=== PATIENT | male | born 1985 | race American Indian/Alaskan Native ===

== ENCOUNTER 2017-01-05 11:56 | Emergency (ER) | payer SELFPAY ==
[2017-01-05 13:11] VITALS: BP 144/91
[2017-01-05] MEDS ORDERED: DUONEB 0.5 MG-3 MG/3 ML SOLN IH ONE (13:28)
--- NOTE | 2017-01-05 13:36 | Emergency Department Report ---
ED Asthma HPI - General Chief Complaint: Adult Asthma Stated Complaint: CHEST CONGESTION/BRONCHITIS Time Seen by Provider: 01/05/17 13:14 Source: patient Mode of arrival: Ambulatory Limitations: No Limitations - History of Present Illness Initial Comments: patient returns to ER today with same complaints of wheezing, SOB and productive cough. States that since he moved from [place] to here, he has always been like this. Notes that this month, he has been coughing up green plegm as well. MD Complaint: shortness of breath, wheezing -: Gradual, month(s) Severity: severe, similar to prior Context: recent URI, ran out of meds Associated Symptoms: productive cough, fever. denies: chest pain, hemoptysis, leg edema, syncope Treatments Prior to Arrival: inhaled bronchodilator - Related Data Current Asthma Therapy: inhaled bronchodilator Previous Rx's Medication Instructions Recorded Last Taken Type ALBUTEROL NEB's [Proventil 0.083% 2.5 mg IH QID PRN #25 neb 11/15/16 Unknown Rx NEBS] ALBUTEROL NEB's [Proventil 0.083% 2.5 mg IH QID PRN #240 nebu 01/05/17 Unknown Rx NEBS] Amoxicillin 1,000 mg PO BID #40 capsule 01/05/17 Unknown Rx Budesonide [Pulmicort] 0.5 mg IH Q12HR #60 nebu 01/05/17 Unknown Rx Montelukast [Singulair] 10 mg PO QPM #30 tablet 01/05/17 Unknown Rx predniSONE [Deltasone] 60 mg PO QDAY 5 Days 01/05/17 Unknown Rx Allergies Allergy/AdvReac Type Severity Reaction Status Date / Time No Known Allergies Allergy Verified 01/05/17 13:05 ED Review of Systems ROS: Stated complaint: CHEST CONGESTION/BRONCHITIS Other details as noted in HPI Constitutional: fever. denies: chills Eyes: denies: eye pain, eye discharge, vision change ENT: congestion. denies: ear pain, throat pain Respiratory: cough, shortness of breath, wheezing. denies: SOB with exertion Cardiovascular: denies: chest pain, palpitations Endocrine: no symptoms reported Gastrointestinal: denies: abdominal pain, nausea, diarrhea Genitourinary: denies: urgency, dysuria Musculoskeletal: denies: back pain, joint swelling, arthralgia Skin: denies: rash, lesions Neurological: denies: headache, weakness, paresthesias Psychiatric: denies: anxiety, depression Hematological/Lymphatic: denies: easy bleeding, easy bruising ED Past Medical Hx - Past Medical History Additional medical history: bronchitis - Surgical History Past Surgical History?: No - Social History Smoking Status: Current Some Day Smoker Substance Use Type: Alcohol - Medications Home Medications: Home Medications Medication Instructions Recorded Confirmed Last Taken Type ALBUTEROL NEB's [Proventil 0.083% 2.5 mg IH QID PRN #25 neb 11/15/16 Unknown Rx NEBS] ALBUTEROL NEB's [Proventil 0.083% 2.5 mg IH QID PRN #240 nebu 01/05/17 Unknown Rx NEBS] Amoxicillin 1,000 mg PO BID #40 capsule 01/05/17 Unknown Rx Budesonide [Pulmicort] 0.5 mg IH Q12HR #60 nebu 01/05/17 Unknown Rx Montelukast [Singulair] 10 mg PO QPM #30 tablet 01/05/17 Unknown Rx predniSONE [Deltasone] 60 mg PO QDAY 5 Days 01/05/17 Unknown Rx ED Physical Exam - General Limitations: No Limitations General appearance: alert, in no apparent distress - Head Head exam: Present: atraumatic, normocephalic - Eye Eye exam: Present: normal appearance - ENT ENT exam: Present: mucous membranes moist, TM's normal bilaterally, normal external ear exam, other (red and swollen nasal mucosa) - Expanded ENT Exam Expanded Mouth exam: Present: normal external inspection Throat exam: Positive: normal inspection - Neck Neck exam: Present: normal inspection - Respiratory Respiratory exam: Present: normal lung sounds bilaterally, wheezes, rhonchi. Absent: respiratory distress, chest wall tenderness - Cardiovascular Cardiovascular Exam: Present: regular rate, normal rhythm. Absent: systolic murmur, diastolic murmur, rubs, gallop - GI/Abdominal GI/Abdominal exam: Present: soft, normal bowel sounds - Rectal Rectal exam: Present: deferred - Extremities Exam Extremities exam: Present: normal inspection - Back Exam Back exam: Present: normal inspection - Neurological Exam Neurological exam: Present: alert, oriented X3 - Psychiatric Psychiatric exam: Present: normal affect, normal mood - Skin Skin exam: Present: warm, dry, intact, normal color. Absent: rash ED Course Vital Signs 01/05/17 13:07 Temperature 98.3 F Pulse Rate 73 Respiratory 22 Rate Blood Pressure 144/91 O2 Sat by Pulse 98 Oximetry ED Medical Decision Making - Medical Decision Making patient states that he was worse last time he was here and that they gave him steroid shots and breathing treatments with CXR. Was told the Xray was normal and he does not want to get another X-ray today. I believe patient to be having allergic asthma related to environmental change from [place]. Patient given #3 duoneb treatments in the ER today with improvements of breath sounds and symptoms. I will start patient on preventative medications as well as refer to pulmonology doctor. Critical care attestation.: If time is entered above; I have spent that time in minutes in the direct care of this critically ill patient, excluding procedure time. ED Disposition Clinical Impression: Wheezing, Asthmatic bronchitis Disposition: DISCHARGED TO HOME OR SELFCARE Is pt being admited?: No Does the pt Need Aspirin: No Condition: Good Instructions: Acute Bronchitis (ED), Asthma (ED), Bronchospasm (ED) Prescriptions: ALBUTEROL NEB's [Proventil 0.083% NEBS] 2.5 mg IH QID PRN #240 nebu PRN Reason: Shortness Of Breath Amoxicillin 1,000 mg PO BID #40 capsule Budesonide [Pulmicort] 0.5 mg IH Q12HR #60 nebu Montelukast [Singulair] 10 mg PO QPM #30 tablet predniSONE [Deltasone] 60 mg PO QDAY 5 Days Referrals: PRIMARY CARE, [Primary Care Provider] - 3-5 Days PEARL AREVALO MD [Staff Physician] - 3-5 Days Time of Disposition: 14:53
== END 2017-01-05 15:17 | disposition home or self-care (01) ==
LOC: ED 11:56
DX: J45.909 Unspecified asthma, uncomplicated (principal); F17.200 Nicotine dependence, unspecified, uncomplicated

== ENCOUNTER 2017-08-09 00:59 | Emergency (ER) | payer SELFPAY ==
[2017-08-09 01:16] VITALS: BP 174/85
[2017-08-09] MEDS ORDERED: PROVENTIL IH ONE (01:17)
[2017-08-09 02:07] LABS: Anion Gap 17 mmol/L; BUN/Creatinine Ratio 17; Blood Urea Nitrogen 19 mg/dL (9-20); Calcium 8.9 mg/dL (8.4-10.2); Carbon Dioxide 24 mmol/L (22-30); Chloride 102.2 mmol/L (98-107); Glucose 91 mg/dL (75-100); Sodium 139 mmol/L (137-145)
--- NOTE | 2017-08-09 03:02 | XRay Report ---
FINAL REPORT EXAM: XR CHEST ROUTINE 2V HISTORY: Shortness of breath TECHNIQUE: PA and lateral views of the chest were obtained. FINDINGS: The heart size and mediastinum appear normal. The lungs are clear. Pleural fluid is not seen. The bones and soft tissues are well maintained. IMPRESSION: Negative chest.
== END 2017-08-09 06:20 | disposition left against medical advice (07) ==
LOC: ED 00:59
DX: Z53.21 Procedure and treatment not carried out due to patient leaving prior to being seen by health care provider (principal)
CPT/HCPCS: 36415; 71020; 80048; 93005; 94640

== ENCOUNTER 2021-12-06 05:36 | Emergency (ER) | payer SELFPAY ==
[2021-12-06] MEDS ORDERED: methylPREDNISolone Sod Succinate 125 MG/2 ML INJ IV ONE (05:41)
[2021-12-06] MEDS ORDERED: diphenhydrAMINE 50 MG/ML VIAL IV ONE (05:41)
[2021-12-06] MEDS ORDERED: MAGNESIUM SULFATE 2 GM/50 ML BAG IV ONE (05:43)
--- NOTE | 2021-12-06 05:48 | Event Note ---
ED Screening Note ED Screening Note: [id number] male with no history of asthma ran out of his medication try to use water and with albuterol to stretch it out to make it last longer but was unsuccessful in him emergency department dizziness with wheezing tightness in the chest and shortness of breath. This initial assessment/diagnostic orders/clinical plan/treatment(s) is/are subject to change based on patients health status, clinical progression and re- assessment by fellow clinical providers in the ED. Further treatment and workup at subsequent clinical providers discretion. Patient/guardian urged not to elope from the ED as their condition may be serious if not clinically assessed and managed. Initial orders include: Albuterol/asthma protocol
[2021-12-06] MEDS: ALBUTEROL 2.5 MG/3 ML NEBU IH ONE ×2 (05:58→08:02)
[2021-12-06] MEDS: IPRATROPIUM 0.02% NEBU 2.5 ML IH ONE ×2 (05:58→08:08)
[2021-12-06] MEDS ORDERED: LEVALBUTEROL 0.63 MG/3 ML NEBU IH ONE (07:20)
--- NOTE | 2021-12-06 07:23 | Emergency Department Report ---
ED Asthma HPI - General Chief Complaint: Dyspnea/Respdistress Stated Complaint: ASTHMA Time Seen by Provider: 12/06/21 06:28 Source: patient Mode of arrival: Ambulatory Limitations: No Limitations - History of Present Illness Initial Comments: 36-year-old male with a past medical history of asthma and chronic bronchitis presents to the ER today with complaints of asthma flareup. Patient states that his symptoms started 4 days ago. Patient reports cough, wheezing, shortness of breath, chest tightness, hoarse voice and rhinorrhea. Patient states that he does not have have any of his albuterol MDIs nor does he have any more albuterol nebulized solution for his albuterol nebulizer. He denies any fever or chills. Denies any ill contacts. He denies tobacco use, illicit drug use or alcohol abuse. He states that the last time he was admitted was 3 years ago for his asthma. He has never been intubated before in the past. He denies any history of heart disease. 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 He states that the weather in [place] was very cold and he was not prepared and thinks that this may have triggered his asthma symptoms in addition to the pollen here in [place]. He denies any lower extremity swelling or calf pain. Patient has not been vaccinated against COVID- 19. He has not gotten a COVID-19 test since he has been sick. MD Complaint: "asthma attack", shortness of breath, wheezing -: days(s) (4) - Related Data Previous Rx's Medication Instructions Recorded Last Taken Type ALBUTEROL NEB's [Proventil 0.083% 2.5 mg IH QID PRN #25 neb 11/15/16 Unknown Rx NEBS] Amoxicillin 1,000 mg PO BID #40 capsule 01/05/17 Unknown Rx Budesonide [Pulmicort] 0.5 mg IH Q12HR #60 nebu 01/05/17 Unknown Rx ALBUTEROL NEB's [Proventil 0.083% 2.5 mg IH QID PRN #240 nebu 12/06/21 Unknown Rx NEBS] Azithromycin [Zithromax Z-ANDERS] 0 mg PO DAILY #1 pack 12/06/21 Unknown Rx Benzonatate [Tessalon Perles] 100 mg PO Q8HR #30 cap 12/06/21 Unknown Rx Montelukast [Singulair] 10 mg PO QPM #30 tablet 12/06/21 Unknown Rx predniSONE [Deltasone] 60 mg PO QDAY 4 Days tab 12/06/21 Unknown Rx Allergies Allergy/AdvReac Type Severity Reaction Status Date / Time No Known Allergies Allergy Verified 01/05/17 13:05 ED Review of Systems ROS: Stated complaint: ASTHMA Other details as noted in HPI Comment: All other systems reviewed and negative Constitutional: denies: chills, fever ENT: other (Rhinorrhea). denies: ear pain, throat pain, dental pain, hearing loss Respiratory: cough, shortness of breath, wheezing Cardiovascular: chest pain (Chest tightness) Gastrointestinal: denies: abdominal pain, nausea, diarrhea Genitourinary: denies: urgency, dysuria, frequency, hematuria, discharge, testicular pain, testicular mass Musculoskeletal: denies: back pain, joint swelling, arthralgia, myalgia Skin: denies: rash, lesions, change in color, change in hair/nails, pruritus Neurological: denies: headache, weakness, numbness, paresthesias, confusion, abnormal gait, vertigo Psychiatric: denies: anxiety, depression, auditory hallucinations, visual hallucinations, homicidal thoughts, suicidal thoughts Hematological/Lymphatic: denies: easy bleeding, easy bruising, swollen glands ED Past Medical Hx - Past Medical History Hx Asthma: Yes Additional medical history: bronchitis - Social History Smoking Status: Current Every Day Smoker Substance Use Type: None - Medications Home Medications: Home Medications Medication Instructions Recorded Confirmed Last Taken Type ALBUTEROL NEB's [Proventil 0.083% 2.5 mg IH QID PRN #25 neb 11/15/16 Unknown Rx NEBS] Amoxicillin 1,000 mg PO BID #40 capsule 01/05/17 Unknown Rx Budesonide [Pulmicort] 0.5 mg IH Q12HR #60 nebu 01/05/17 Unknown Rx ALBUTEROL NEB's [Proventil 0.083% 2.5 mg IH QID PRN #240 nebu 12/06/21 Unknown Rx NEBS] Azithromycin [Zithromax Z-ANDERS] 0 mg PO DAILY #1 pack 12/06/21 Unknown Rx Benzonatate [Tessalon Perles] 100 mg PO Q8HR #30 cap 12/06/21 Unknown Rx Montelukast [Singulair] 10 mg PO QPM #30 tablet 12/06/21 Unknown Rx predniSONE [Deltasone] 60 mg PO QDAY 4 Days tab 12/06/21 Unknown Rx ED Physical Exam - General Limitations: No Limitations General appearance: alert, in no apparent distress, other (Patient had already received a nebulizer treatment by the time I saw and evaluated him. At the time he was not in any respiratory distress.) - Head Head exam: Present: atraumatic, normocephalic, normal inspection - Eye Eye exam: Present: normal appearance, PERRL, EOMI Pupils: Present: normal accommodation - Neck Neck exam: Present: normal inspection, full ROM. Absent: meningismus - Respiratory Respiratory exam: Present: normal lung sounds bilaterally, wheezes (Diffuse expiratory expiratory wheezing). Absent: respiratory distress, rales, rhonchi, stridor, chest wall tenderness - Cardiovascular Cardiovascular Exam: Present: normal rhythm, tachycardia, normal heart sounds - Extremities Exam Extremities exam: Present: normal inspection, full ROM. Absent: tenderness, normal capillary refill, pedal edema, calf tenderness - Neurological Exam Neurological exam: Present: alert, oriented X3, CN II-XII intact, normal gait - Psychiatric Psychiatric exam: Present: normal affect, normal mood - Skin Skin exam: Present: intact ED Course Vital Signs 12/06/21 12/06/21 12/06/21 05:39 07:50 08:24 Temperature 98.7 F Pulse Rate 106 H 106 H Pulse Rate [ 96 H Anterior] Pulse Rate [ 102 H Posterior] Respiratory 26 H 20 Rate Respiratory 20 Rate [Anterior] Respiratory 20 Rate [Posterior ] Blood Pressure 164/80 Blood Pressure 156/84 [Left] O2 Sat by Pulse 91 96 Oximetry 12/06/21 10:20 Temperature Pulse Rate 112 H Pulse Rate [ Anterior] Pulse Rate [ Posterior] Respiratory 18 Rate Respiratory Rate [Anterior] Respiratory Rate [Posterior ] Blood Pressure Blood Pressure 170/87 [Left] O2 Sat by Pulse 94 Oximetry ED Medical Decision Making - Radiology Data Radiology results: report reviewed Patient: FLORENTIN BELL MR#: [id number] : 1985 Acct:[id number] Age/Sex: 36 / M ADM Date: 12/06/21 Loc: ED Attending Dr: Ordering Physician: THONY JAIME Date of Service: 12/06/21 Procedure(s): XR chest routine 2V Accession Number(s): [id number] cc: THONY JAIME Fluoro Time In Minutes: CHEST 2 VIEWS INDICATION / CLINICAL INFORMATION: SOB/wheezing. Shortness of breath for one week. COMPARISON: 08/09/17. FINDINGS: SUPPORT DEVICES: None. HEART / MEDIASTINUM: The heart size and pulmonary vasculature are normal. LUNGS / PLEURA: There is mild patchy parenchymal disease in the left lower lung, lateral to the heart, on the PA view. The lungs are otherwise clear. No pleural effusion. No p neumothorax. ADDITIONAL FINDINGS: No significant additional findings. IMPRESSION: Mild patchy pneumonia in the left lower lung. Signer Name: Say Anne MD Signed: 12/06/2021 7:49 AM Workstation Name: [id number] Transcribed By: RT Dictated By: Say Anne MD Electronically Authenticated By: Say Anne MD Signed Date/Time: 12/06/2149 DD/ 7 TD/TT: - Medical Decision Making 0724: Patient had already received a DuoNeb treatment as well as Solu-Medrol, by the time I saw him. These were ordered as part of the triage protocol. Patient reports that now he is starting to feel little better, and is currently not in any distress. He feels like his lungs are "opening up" but she has all" shows that he still has diffuse expiratory and inspiratory wheezing. Magnesium still pending to be given. Xopenex treatment ordered. Chest x-ray ordered. Repeat vitals ordered. Patient reports that he is feeling better. He still has some wheezing on exam but it is improving. He is not in any respiratory distress and he speaks in full sentences. He is not toxic or ill-appearing. He repeat VS shows that he is no hypoxic and respiratory rate has improved. He is still mildly tachy which is likely secondary to neb treatments. His Chest xray shows Mild patchy pneumonia in the left lower lung. Discussed results with patient. I did recommend that he gets an outpatient COVID 19 test. He is stable enough for outpatient treatment of his pneumonia and his asthma. He will be discharged home on antibiotics and albuterol inhaler and nebulizer. Discussed treatment plan with patient. Patient expressed understanding of all instructions and agree with plan. Patient stable at time of discharge. Critical care attestation.: If time is entered above; I have spent that time in minutes in the direct care of this critically ill patient, excluding procedure time. ED Disposition Clinical Impression: Pneumonia, Asthma exacerbation Disposition: 01 HOME / SELF CARE / HOMELESS Is pt being admited?: No Does the pt Need Aspirin: No Condition: Stable Instructions: Asthma Attack, Community-Acquired Pneumonia, Adult, [id number], Bacterial Pneumonia (ED) Additional Instructions: I recommend that you get the medications filled that were prescribed here in the ER and start taking them including the albuterol MDI and a nebulizer. I do recommend considering getting a COVID-19 test at a local pharmacy, urgent care or drive-through clinic. I do recommend close follow-up with your primary care doctor. Return to the ER if your symptoms changes or worsens in any way. Prescriptions: predniSONE [Deltasone] 60 mg PO QDAY 4 Days tab ALBUTEROL NEB's [Proventil 0.083% NEBS] 2.5 mg IH QID PRN #240 nebu PRN Reason: Shortness Of Breath Montelukast [Singulair] 10 mg PO QPM #30 tablet Benzonatate [Tessalon Perles] 100 mg PO Q8HR #30 cap Azithromycin [Zithromax Z-ANDERS] 0 mg PO DAILY #1 pack Referrals: PRIMARY CAREMD [Primary Care Provider] - 3-5 Days MEE LOUIE MD [Staff Physician] - 3-5 Days Forms: Work/School Release Form(ED) Time of Disposition: 09:58
--- NOTE | 2021-12-06 07:54 | XRay Report ---
CHEST 2 VIEWS INDICATION / CLINICAL INFORMATION: SOB/wheezing. Shortness of breath for one week. COMPARISON: 08/09/17. FINDINGS: SUPPORT DEVICES: None. HEART / MEDIASTINUM: The heart size and pulmonary vasculature are normal. LUNGS / PLEURA: There is mild patchy parenchymal disease in the left lower lung, lateral to the heart , on the PA view. The lungs are otherwise clear. No pleural effusion. No pneumothorax. ADDITIONAL FINDINGS: No significant additional findings. IMPRESSION: Mild patchy pneumonia in the left lower lung. Signer Name: Say Anne MD Signed: 12/06/2021 7:49 AM Workstation Name: [id number]
[2021-12-06] MEDS ORDERED: IPRATROPIUM 0.02% NEBU 2.5 ML IH ONE (08:06)
[2021-12-06 10:20] VITALS: BP 170/87
== END 2021-12-06 10:21 | disposition home or self-care (01) ==
LOC: ED 05:36
DX: J18.9 Pneumonia, unspecified organism (principal); J45.901 Unspecified asthma with (acute) exacerbation; F17.200 Nicotine dependence, unspecified, uncomplicated
CPT/HCPCS: 71046; 94640; 94644; 94645; 96374; 96375; 99283; J1200; J2930; J3475

== ENCOUNTER 2022-01-28 07:00 | Inpatient (IN) | payer SELFPAY ==
[2022-01-28] MEDS ORDERED: MAGNESIUM SULFATE 2 GM/50 ML BAG IV ONE (07:50)
[2022-01-28] MEDS ORDERED: ALBUTEROL 2.5 MG/3 ML NEBU IH ONE (07:50)
[2022-01-28] MEDS ORDERED: methylPREDNISolone Sod Succinate 125 MG/2 ML INJ IV ONE (07:50)
[2022-01-28] MEDS ORDERED: IPRATROPIUM 0.02% NEBU 2.5 ML IH ONE ×2 (07:50→21:20)
--- NOTE | 2022-01-28 07:54 | Emergency Department Report ---
ED Shortness of Breath HPI - General Stated Complaint: SOB/ASTHMA ATTACK Time Seen by Provider: 01/28/22 07:49 Source: patient - History of Present Illness Initial Comments: Patient is 36 years old male with history of asthma and hypertension. Patient presented to the ER complaining of shortness of breath and wheezing for the last 3 days. Patient stated that he has been using his inhaler with no improvement. Patient denies any fever however he reported chills. He denied any chest pain, abdominal pain, nausea and vomiting. Patient initial oxygen saturation was 89% on room air improved to 96% on 2 L. MD Complaint: shortness of breath, cough -: days(s) Severity: moderate - Related Data Previous Rx's Medication Instructions Recorded Last Taken Type ALBUTEROL NEB's [Proventil 0.083% 2.5 mg IH QID PRN #25 neb 11/15/16 Unknown Rx NEBS] Amoxicillin 1,000 mg PO BID #40 capsule 01/05/17 Unknown Rx Budesonide [Pulmicort] 0.5 mg IH Q12HR #60 nebu 01/05/17 Unknown Rx ALBUTEROL NEB's [Proventil 0.083% 2.5 mg IH QID PRN #240 nebu 12/06/21 Unknown Rx NEBS] Azithromycin [Zithromax Z-ANDERS] 0 mg PO DAILY #1 pack 12/06/21 Unknown Rx Benzonatate [Tessalon Perles] 100 mg PO Q8HR #30 cap 12/06/21 Unknown Rx Montelukast [Singulair] 10 mg PO QPM #30 tablet 12/06/21 Unknown Rx predniSONE [Deltasone] 60 mg PO QDAY 4 Days tab 12/06/21 Unknown Rx Allergies Allergy/AdvReac Type Severity Reaction Status Date / Time Iodine and Iodide Containing AdvReac Unknown Verified 01/28/22 08:16 Produc ED Review of Systems ROS: Stated complaint: SOB/ASTHMA ATTACK Other details as noted in HPI Comment: All other systems reviewed and negative Constitutional: chills. denies: fever Respiratory: cough, shortness of breath, SOB with exertion, SOB at rest, wheezing. denies: orthopnea Cardiovascular: dyspnea on exertion. denies: chest pain, palpitations Gastrointestinal: denies: abdominal pain, nausea, vomiting Musculoskeletal: denies: back pain Neurological: denies: headache, weakness, numbness, paresthesias, confusion, abnormal gait ED Past Medical Hx - Past Medical History Hx Asthma: Yes Additional medical history: bronchitis - Social History Smoking Status: Current Every Day Smoker Substance Use Type: None - Medications Home Medications: Home Medications Medication Instructions Recorded Confirmed Last Taken Type ALBUTEROL NEB's [Proventil 0.083% 2.5 mg IH QID PRN #25 neb 11/15/16 Unknown Rx NEBS] Amoxicillin 1,000 mg PO BID #40 capsule 01/05/17 Unknown Rx Budesonide [Pulmicort] 0.5 mg IH Q12HR #60 nebu 01/05/17 Unknown Rx ALBUTEROL NEB's [Proventil 0.083% 2.5 mg IH QID PRN #240 nebu 12/06/21 Unknown Rx NEBS] Azithromycin [Zithromax Z-ANDERS] 0 mg PO DAILY #1 pack 12/06/21 Unknown Rx Benzonatate [Tessalon Perles] 100 mg PO Q8HR #30 cap 12/06/21 Unknown Rx Montelukast [Singulair] 10 mg PO QPM #30 tablet 12/06/21 Unknown Rx predniSONE [Deltasone] 60 mg PO QDAY 4 Days tab 12/06/21 Unknown Rx ED Physical Exam - General General appearance: alert, in distress - Head Head exam: Present: atraumatic, normocephalic, normal inspection - ENT ENT exam: Present: normal exam, normal orophraynx, mucous membranes moist - Neck Neck exam: Present: normal inspection, full ROM. Absent: tenderness, m eningismus, lymphadenopathy - Respiratory Respiratory exam: Present: respiratory distress, wheezes, rhonchi, accessory muscle use, decreased breath sounds, prolonged expiratory. Absent: rales - Cardiovascular Cardiovascular Exam: Present: regular rate, normal rhythm, normal heart sounds - GI/Abdominal GI/Abdominal exam: Present: soft, normal bowel sounds. Absent: distended, tend erness, guarding, rebound, rigid, organomegaly, mass, bruit, pulsatile mass, hernia - Extremities Exam Extremities exam: Present: normal inspection, full ROM, normal capillary refill. Absent: tenderness, pedal edema, joint swelling, calf tenderness - Back Exam Back exam: Present: normal inspection, full ROM. Absent: CVA tenderness (R), CVA tenderness (L) - Neurological Exam Neurological exam: Present: alert, oriented X3, CN II-XII intact, normal gait, reflexes normal. Absent: motor sensory deficit - Psychiatric Psychiatric exam: Present: normal mood - Skin Skin exam: Present: warm, intact, normal color ED Course Vital Signs 01/28/22 01/28/22 01/28/22 07:42 07:46 07:57 Temperature 98.1 F Pulse Rate 116 H 117 H Respiratory 26 H 33 H Rate Blood Pressure 172/83 Blood Pressure [Left] O2 Sat by Pulse 93 Oximetry 01/28/22 01/28/22 01/28/22 08:00 08:15 08:20 Temperature 98.3 F Pulse Rate 112 H 115 H Respiratory 35 H 30 H 30 H Rate Blood Pressure 141/94 Blood Pressure 141/94 [Left] O2 Sat by Pulse 94 94 94 Oximetry 01/28/22 01/28/22 01/28/22 08:30 09:00 09:30 Temperature Pulse Rate 120 H 120 H 118 H Respiratory 30 H 23 25 H Rate Blood Pressure 160/93 147/90 153/71 Blood Pressure [Left] O2 Sat by Pulse 95 94 95 Oximetry 01/28/22 01/28/22 10:00 10:30 Temperature Pulse Rate 121 H 118 H Respiratory 20 22 Rate Blood Pressure 153/71 153/71 Blood Pressure [Left] O2 Sat by Pulse 92 94 Oximetry ED Medical Decision Making - Lab Data Result diagrams: 01/28/22 07:58 01/28/22 07:58 - EKG Data -: EKG Interpreted by Ak EKG shows normal: sinus rhythm Rate: tachycardia - Radiology Data Radiology results: report reviewed - Medical Decision Making Patient is 36 years old male with history of asthma and hypertension. Patient presented to the ER complaining of shortness of breath and wheezing for the last 3 days. Patient stated that he has been using his inhaler with no improvement. Patient denies any fever however he reported chills. He denied any chest pain, abdominal pain, nausea and vomiting. Patient initial oxygen saturation was 89% on room air improved to 96% on 2 L. Patient received albuterol, Atrovent, Solu-Medrol and magnesium sulfate. Labs reviewed and showed leukocytosis. CT chest showed groundglass appearance concerning for atypical pneumonia. Patient did not receive COVID-vaccine. Patient given Zithromax and Rocephin. Patient required oxygen to keep his saturation above 95%. Patient dropped to 88% on room air. I discussed the patient with Dr. Elizondo, he agreed to admit the patient to medical service for further management. Critical Care Time: Yes Critical care time in (mins) excluding proc time.: 35 Critical care attestation.: If time is entered above; I have spent that time in minutes in the direct care of this critically ill patient, excluding procedure time. ED Disposition Clinical Impression: Acute respiratory failure with hypoxia, Bilateral pneumonia, Acute asthma exacerbation, Suspected COVID-19 virus infection Disposition: 09 ADMITTED INPATIENT Is pt being admited?: Yes Condition: Stable Instructions: Bacterial Pneumonia (ED) Referrals: MEE LOUIE MD [Primary Care Provider] - 3-5 Days
--- NOTE | 2022-01-28 08:18 | XRay Report ---
CHEST 1 VIEW 01/28/2022 7:55 AM INDICATION / CLINICAL INFORMATION: Dyspnea. COMPARISON: 12/06/21 FINDINGS: SUPPORT DEVICES: None. HEART / MEDIASTINUM: No significant abnormality. LUNGS / PLEURA: No acute airspace disease. Patchy versus nodular density in the left lung base appear s similar to the previous study. No pneumothorax. ADDITIONAL FINDINGS: No significant additional findings. IMPRESSION: 1. No change in patchy versus nodular density in the left lung base. CT chest without contrast would be helpful for further evaluation. Signer Name: Jossue Garcia MD Signed: 01/28/2022 8:13 AM Workstation Name: [id number]
[2022-01-28 09:07] LABS: Basophils # (Auto) 0.1 K/mm3 (0.0-0.1); Basophils % (Auto) 1.1 % (0.0-1.8); Eosinophils # (Auto) 0.6 K/mm3 (0.0-0.4); Eosinophils % (Auto) 5.4 % (0.0-4.3); Lymphocytes # (Auto) 1.9 K/mm3 (1.2-5.4); Lymphocytes % (Auto) 16.1 % (13.4-35.0); Mean Corpuscular HGB Conc 36 % (32-34); Mean Corpuscular Volume 91 fl (84-94); Monocytes # (Auto) 1.5 K/mm3 (0.0-0.8); Monocytes % (Auto) 12.1 % (0.0-7.3); Platelet Count 290 K/mm3 (140-440); Red Blood Count 4.06 M/mm3 (3.65-5.03); Red Cell Distribution Width 13.4 % (13.2-15.2)
[2022-01-28 09:12] LABS: BUN/Creatinine Ratio 11; Blood Urea Nitrogen 13 mg/dL (9-20); Calcium 9.3 mg/dL (8.4-10.2); Hemolysis Index 4
[2022-01-28 09:14] LABS: Albumin 4.4 g/dL (3.9-5); Bilirubin,Direct 0.2 mg/dL (0-0.2)
[2022-01-28 09:21] LABS: Hematocrit 36.8 % (35.5-45.6); Hemoglobin 13.4 gm/dl (11.8-15.2)
[2022-01-28 09:23] LABS: INR 1.17 (0.87-1.13)
[2022-01-28 09:24] LABS: Partial Thromboplastin Time 34.3 Sec. (24.2-36.6)
--- NOTE | 2022-01-28 11:06 | Cat Scan Report ---
CT CHEST WITHOUT CONTRAST INDICATION / CLINICAL INFORMATION: Abnormal chest x-ray.. TECHNIQUE: Axial CT images were obtained through the chest without contrast. [facility] CT scans [facility] are performed using CT dose reduction for ALARA by means of automated exposure control. COMPARISON: Chest radiograph dated 01/28/2022 and 12/06/2021 FINDINGS: HEART: No significant abnormality. CORONARY ARTERY CALCIFICATION: None. THORACIC AORTA: No significant abnormality. MEDIASTINUM / KAMALA: No significant abnormality. PLEURA: No pleural effusion. No pneumothorax. LUNGS: Scattered patchy groundglass opacities are noted throughout the bilateral lungs with a slight central predominance. ADDITIONAL FINDINGS: None. UPPER ABDOMEN: No significant abnormality. SKELETAL SYSTEM: No significant abnormality. IMPRESSION: 1. Scattered patchy groundglass opacities throughout the bilateral lungs with a slight central predom inance. These are nonspecific and may represent sequela of infectious or inflammatory process. Signer Name: Lazaro Elmore DO Signed: 01/28/2022 10:59 AM Workstation Name: [id number]
[2022-01-28] MEDS ORDERED: cefTRIAXone/NS 1 GM/50 ML 1 GM/50 ML BAG IV ONE (11:18)
[2022-01-28] MEDS ORDERED: AZITHROMYCIN/NS 500 MG/250 ML 500 MG/250 ML BAG IV ONE (11:18)
--- NOTE | 2022-01-28 11:31 | History and Physical Report ---
History of Present Illness Chief complaint: I cannot catch my breath History of present illness: 36 YO Male with Mild Intermittent Asthma, Nicotine Dependence presents to ED for evaluation. Patient reports "I cannot catch my breath". Patient states that he has experienced shortness of breath over the past 3 days with persistent and worsening symptoms over the same timeframe. Patient acknowledges diminished sense of taste with diminished sense of smell, fatigue, malaise, body aches, and diminished exercise tolerance. Patient acknowledges increased bronchodilator therapy use without relief. Patient subsequently failed outpatient therapy. Patient transported to [facility] via private vehicle for further care and evaluation of the aforementioned symptoms. The patient was seen and evaluated in the emergency department. All lab and imaging studies reviewed. Patient found to have a pulse oximetry of 89% on room air which is consistent with acute hypoxemic respiratory failure. Chest x-ray revealed bilateral pneumonia which was complicated by sepsis. Patient admitted to medical floor and initiated on sepsis protocol, coronavirus protocol, as well as pneumonia protocol. Patient initiated on high flow supplemental oxygen with mild improvement in symptoms. Patient acknowledges subjective fever but denies chills, chest pain, palpitation, productive cough, skin rash, recent ill contacts, known exposure to COVID-19. No prior admission for review. All medication listed at time of admission has been reconciled. Advanced care planning conducted in ED. Past History Past Medical History: other (See HPI) Past Surgical History: No surgical history, Other (Reviewed) Social history: single, smoking Family history: hypertension Medications and Allergies Allergies Allergy/AdvReac Type Severity Reaction Status Date / Time Iodine and Iodide Containing AdvReac Unknown Verified 01/28/22 08:16 Produc Home Medications Medication Instructions Recorded Confirmed Last Taken Type Montelukast [Singulair] 10 mg PO QPM #30 tablet 12/06/21 01/28/22 01/27/22 Rx Active Meds: Active Medications Ceftriaxone Sodium (Rocephin/Ns 1 Gm/50 Ml) 1 gm in 50 mls @ 100 mls/hr IV ONCE ONE; Protocol Stop: 01/28/22 11:47 Azithromycin (Zithromax/Ns) 500 mg in 250 mls @ 250 mls/hr IV ONCE ONE; Protocol Stop: 01/28/22 12:17 Review of Systems Constitutional: fever, fatigue, malaise, lethargy Ears, nose, mouth and throat: other (Diminished sense of taste/ smell, ), no ear pain, no ear discharge, no decreased hearing, no nasal congestion Cardiovascular: no chest pain, no orthopnea, no edema Respiratory: shortness of breath, wheezing Gastrointestinal: no abdominal pain, no nausea, no vomiting, no diarrhea Genitourinary Male: no flank pain, no discharge, no urinary frequency, no urinary hesitancy Rectal: no pain, no incontinence, no bleeding Musculoskeletal: no neck stiffness, no neck pain, no shooting arm pain, no arm numbness/tingling, no shooting leg pain Integumentary: no rash, no pruritis, no redness, no sores, no wounds, no boils Neurological: no head injury, no parathesias, no tingling, no syncope Psychiatric: no anxiety, no change in sleep habits, no sleep disturbances, no hypersomnia, no change in appetite, no suicidal ideation Endocrine: no cold intolerance, no polydipsia, no polyuria, no nocturia, no flushing Hematologic/Lymphatic: no easy bruising Allergic/Immunologic: no urticaria Exam - Constitutional Vitals: Temp Pulse Resp BP Pulse Ox 98.3 F 118 H 22 153/71 94 01/28/22 08:15 01/28/22 10:30 01/28/22 10:30 01/28/22 10:30 01/28/22 10:30 General appearance: Present: mild distress - EENT Eyes: Present: PERRL ENT: hearing intact, clear oral mucosa - Neck Neck: Present: supple, normal ROM - Respiratory Respiratory effort: normal Respiratory: bilateral: CTA - Cardiovascular Heart Sounds: Present: S1 & S2. Absent: rub, click - Extremities Extremities: pulses symmetrical, No edema Peripheral Pulses: within normal limits - Abdominal General gastrointestinal: Present: soft, non-tender, non-distended, normal bowel sounds Male genitourinary: Present: normal - Integumentary Integumentary: Present: clear, warm, dry - Musculoskeletal Musculoskeletal: generalized weakness - Psychiatric Psychiatric: appropriate mood/affect, intact judgment & insight - Neurologic Neurologic: CNII-XII intact, moves all extremities HEART Score - HEART Score Troponin: Troponin T < 0.010 ng/mL (0.00-0.029) 01/28/22 07:58 Results - Labs CBC & Chem 7: 01/28/22 07:58 01/28/22 07:58 Labs: Abnormal lab results 01/28/22 01/28/22 01/28/22 Range/Units 07:58 07:58 07:58 WBC 12.0 H (4.5-11.0) K/mm3 MCH 33 H (28-32) pg MCHC 36 H (32-34) % [place] % (Auto) 12.1 H (0.0-7.3) % Eos % (Auto) 5.4 H (0.0-4.3) % [place] # (Auto) 1.5 H (0.0-0.8) K/mm3 Eos # (Auto) 0.6 H (0.0-0.4) K/mm3 Seg Neutrophils # 7.8 H (1.8-7.7) K/mm3 PT 16.3 H (12.2-14.9) Sec. INR 1.17 H (0.87-1.13) Sodium 135 L (137-145) mmol/L Chloride 97.2 L (98-107) mmol/L Glucose 114 H (75-100) mg/dL Assessment and Plan - Patient Problems (1) Sepsis Current Visit: Yes Status: Acute Plan to address problem: Sepsis protocol: Chest x-ray, urinalysis, CBC, CMP, IV fluid resuscitation therapy, IV antibiotic therapy, serial lactic acid level, blood culture, maintain mean arterial pressure greater than or equal to 65, monitor fluid balance, (2) Nicotine dependence Current Visit: Yes Status: Acute Qualifiers: Nicotine product type: cigarettes Substance use status: in withdrawal Qualified Code(s): F17.213 - Nicotine dependence, cigarettes, with withdrawal Plan to address problem: Smoking cessation counseling, supportive care, behavior change counseling, +15 minutes. (3) Acute respiratory failure with hypoxia Current Visit: Yes Status: Acute Plan to address problem: Chest x-ray, supplemental oxygen, pulse oximetry, nebulizer therapy, will consider high flow supplemental oxygen if patient is unable to maintain pulse oximetry on supplemental oxygen via nasal cannula. (4) Bilateral pneumonia Current Visit: Yes Status: Acute Plan to address problem: Pneumonia protocol: Chest x-ray, CBC, CMP, supplemental oxygen, pulse oximetry, nebulizer therapy, pulmonary toilet. (5) Suspected COVID-19 virus infection Current Visit: Yes Status: Acute Plan to address problem: Coronavirus protocol: IV antibiotic therapy, vitamin C therapy, vitamin D therapy, zinc therapy, IV steroid therapy, supplemental oxygen, pulmonary toilet, prophylactic anticoagulation. (6) DVT prophylaxis Current Visit: Yes Status: Acute Plan to address problem: SCD to bilateral lower extremities while in bed, prophylactic anticoagulation (7) Advance care planning Current Visit: Yes Status: Acute Plan to address problem: Disease education conducted, care plan discussed, diagnoses discussed, prognosis discussed, patient is full code. Patient acknowledges understanding and agreement with care plan, +30 minutes. (8) Preventative health care Current Visit: Yes Status: Acute Plan to address problem: Patient counseled regarding risk factor reduction, coronavirus vaccination with booster administration, balanced diet, meal planning, increase physical activity discharge. Outpatient follow-up with primary care physician for all age and risk factor appropriate screening tests. +30 minutes. (9) COVID-19 vaccination not done Current Visit: Yes Status: Acute
[2022-01-28] MEDS ORDERED: oxyCODONE /ACETAMINOPHEN 5-325MG TAB PO PRN (11:32)
[2022-01-28] MEDS ORDERED: HYDROmorphone 1 MG/1 ML INJ IV PRN ×2 (11:32)
[2022-01-28] MEDS ORDERED: SODIUM CHLORIDE 0.9% 1000 ML IV SOLN IV ONE (11:32)
[2022-01-28] MEDS ORDERED: ACETAMINOPHEN 325 MG TAB PO PRN ×2 (11:32)
[2022-01-28] MEDS ORDERED: ONDANSETRON 4 MG/2 ML INJ IV PRN (11:32)
[2022-01-28] MEDS: HEPARIN 5,000 UNIT/1 ML VIAL SUB-Q SCH ×2 (13:08→21:14)
[2022-01-28] MEDS: ZINC SULFATE 220 MG CAP PO SCH ×2 (13:25→21:13)
[2022-01-28] MEDS: CHOLECALCIFEROL (VIT D3) 1000 UNIT (25 mcg) TAB PO SCH (13:25)
[2022-01-28] MEDS: ASCORBIC ACID 500 MG TAB PO SCH ×2 (13:25→21:13)
[2022-01-28 13:48] LABS: C-Reactive Protein 15.2 mg/dL (0.00-1.30)
[2022-01-28] MEDS: ALBUTEROL 2.5 MG/3 ML NEBU IH PRN ×3 (15:50→18:41)
[2022-01-28] MEDS: methylPREDNISolone Sod Succinate 40 MG/1 ML INJ IV SCH ×2 (16:32→23:38)
[2022-01-28] MEDS ORDERED: ALBUTEROL 2.5 MG/3 ML NEBU IH PRN (21:34)
[2022-01-29] MEDS: IPRATROPIUM/ALBUTEROL SULFATE 3 ML AMPUL.NEB IH SCH ×6 (00:43→20:15)
[2022-01-29 07:36] LABS: Basophils # (Auto) 0.1 K/mm3 (0.0-0.1); Basophils % (Auto) 0.4 % (0.0-1.8); Hematocrit 37.4 % (35.5-45.6); Hemoglobin 12.8 gm/dl (11.8-15.2); Lymphocytes # (Auto) 1.5 K/mm3 (1.2-5.4); Lymphocytes % (Auto) 7.9 % (13.4-35.0); Mean Corpuscular HGB Conc 34 % (32-34); Mean Corpuscular Volume 93 fl (84-94); Monocytes # (Auto) 1.2 K/mm3 (0.0-0.8); Monocytes % (Auto) 6.6 % (0.0-7.3); Platelet Count 314 K/mm3 (140-440); Red Blood Count 4.02 M/mm3 (3.65-5.03); Red Cell Distribution Width 13.5 % (13.2-15.2)
[2022-01-29 08:02] LABS: Alanine Aminotransferase 24 units/L (7-56); Albumin 4.3 g/dL (3.9-5); BUN/Creatinine Ratio 20; Blood Urea Nitrogen 22 mg/dL (9-20); Calcium 9.4 mg/dL (8.4-10.2); Hemolysis Index 8
[2022-01-29] MEDS: methylPREDNISolone Sod Succinate 40 MG/1 ML INJ IV SCH ×3 (08:55→23:42)
[2022-01-29] MEDS: HEPARIN 5,000 UNIT/1 ML VIAL SUB-Q SCH ×2 (09:04→21:54)
[2022-01-29] MEDS: ASCORBIC ACID 500 MG TAB PO SCH ×2 (09:05→21:55)
[2022-01-29] MEDS: ZINC SULFATE 220 MG CAP PO SCH ×2 (09:05→21:55)
[2022-01-29] MEDS: CHOLECALCIFEROL (VIT D3) 1000 UNIT (25 mcg) TAB PO SCH (09:05)
[2022-01-29] MEDS: AZITHROMYCIN 250 MG TAB PO SCH (09:06)
--- NOTE | 2022-01-29 09:28 | Progress Note ---
Assessment and Plan Assessment and plan: --COVID-19 unvaccinated Current Visit: Yes Status: Acute Patient did not receive COVID-19 vaccination -- Suspected COVID-19 virus infection COVID-19 test negative May DC isolation, continue supportive care -- sepsis due to bilateral pneumonia Sepsis protocol: Chest x-ray, urinalysis, CBC, CMP, IV fluid resuscitation therapy, IV antibiotic therapy, serial lactic acid level, blood culture, maintain mean arterial pressure greater than or equal to 65, monitor fluid balance, -- Bilateral pneumonia Pneumonia protocol: Chest x-ray, CBC, CMP, supplemental oxygen, pulse oximetry, nebulizer therapy, pulmonary toilet. -- Nicotine dependence Smoking cessation counseling, supportive care, behavior change counseling, +15 minutes. -- Acute respiratory failure with hypoxia on 3 to 4 L of nasal cannula oxygen Chest x-ray, supplemental oxygen, pulse oximetry, nebulizer therapy, will consider high flow supplemental oxygen if patient is unable to maintain pulse oximetry on supplemental oxygen via nasal cannula. Wean as tolerated Home O2 evaluation prior to discharge --DVT prophylaxis SCD to bilateral lower extremities while in bed, prophylactic anticoagulation --Advance care planning Disease education conducted, care plan discussed, diagnoses discussed, prognosis discussed, patient is full code. Patient acknowledges understanding and agreement with care plan, +30 minutes. --Preventative health care Patient counseled regarding risk factor reduction, coronavirus vaccination with booster administration, balanced diet, meal planning, increase physical activity discharge. Outpatient follow-up with primary care physician for all age and risk factor appropriate screening tests. +30 minutes. Closely monitor the patient and adjust management as needed Plan of care reviewed with the patient and his nurse History Interval history: I have seen and examined the patient at the bedside Patient's chart and medications reviewed Patient feels slightly better anxious to go home Vital signs reviewed Hospitalist Physical - Constitutional Vitals: Temp Pulse Resp BP Pulse Ox 97.8 F 103 H 16 138/83 92 01/29/22 04:38 01/29/22 05:17 01/29/22 05:17 01/29/22 04:38 01/29/22 04:38 General appearance: Present: mild distress, well-nourished - EENT Eyes: Present: PERRL, EOM intact - Neck Neck: Present: supple, normal ROM - Respiratory Respiratory effort: normal Respiratory: bilateral: diminished, negative: rales, rhonchi, wheezing - Cardiovascular Rhythm: regular Heart Sounds: Present: S1 & S2 - Extremities Extremities: no ischemia, No edema - Abdominal General gastrointestinal: soft, non-tender, non-distended, normal bowel sounds - Integumentary Integumentary: Present: clear, warm - Psychiatric Psychiatric: appropriate mood/affect, cooperative - Neurologic Neurologic: moves all extremities HEART Score - HEART Score Troponin: Troponin T < 0.010 ng/mL (0.00-0.029) 01/28/22 07:58 Results - Labs CBC & Chem 7: 01/29/22 06:55 01/29/22 06:55 Labs: Laboratory Last Values WBC 18.6 K/mm3 (4.5-11.0) H 01/29/22 06:55 RBC 4.02 M/mm3 (3.65-5.03) 01/29/22 06:55 Hgb 12.8 gm/dl (11.8-15.2) 01/29/22 06:55 Hct 37.4 % (35.5-45.6) 01/29/22 06:55 MCV 93 fl (84-94) 01/29/22 06:55 MCH 32 pg (28-32) 01/29/22 06:55 MCHC 34 % (32-34) 01/29/22 06:55 RDW 13.5 % (13.2-15.2) 01/29/22 06:55 Plt Count 314 K/mm3 (140-440) 01/29/22 06:55 Lymph % (Auto) 7.9 % (13.4-35.0) L 01/29/22 06:55 [place] % (Auto) 6.6 % (0.0-7.3) 01/29/22 06:55 Eos % (Auto) 0.0 % (0.0-4.3) 01/29/22 06:55 Baso % (Auto) 0.4 % (0.0-1.8) 01/29/22 06:55 Lymph # (Auto) 1.5 K/mm3 (1.2-5.4) 01/29/22 06:55 [place] # (Auto) 1.2 K/mm3 (0.0-0.8) H 01/29/22 06:55 Eos # (Auto) 0.0 K/mm3 (0.0-0.4) 01/29/22 06:55 Baso # (Auto) 0.1 K/mm3 (0.0-0.1) 01/29/22 06:55 Seg Neutrophils % 85.1 % (40.0-70.0) H 01/29/22 06:55 Seg Neutrophils # 15.8 K/mm3 (1.8-7.7) H 01/29/22 06:55 PT 16.3 Sec. (12.2-14.9) H 01/28/22 07:58 INR 1.17 (0.87-1.13) H 01/28/22 07:58 APTT 34.3 Sec. (24.2-36.6) 01/28/22 07:58 D-Dimer 190.37 ng/mlDDU (0-234) 01/28/22 11:54 Sodium 136 mmol/L (137-145) L 01/29/22 06:55 Potassium 5.4 mmol/L (3.6-5.0) H 01/29/22 06:55 Chloride 100.8 mmol/L (98-107) 01/29/22 06:55 Carbon Dioxide 23 mmol/L (22-30) 01/29/22 06:55 Anion Gap 18 mmol/L 01/29/22 06:55 BUN 22 mg/dL (9-20) H 01/29/22 06:55 Creatinine 1.1 mg/dL (0.8-1.3) 01/29/22 06:55 Estimated GFR > 60 ml/min 01/29/22 06:55 BUN/Creatinine Ratio 20 % 01/29/22 06:55 Glucose 163 mg/dL (75-100) H 01/29/22 06:55 Lactic Acid 1.70 mmol/L (0.7-2.0) 01/29/22 06:55 Calcium 9.4 mg/dL (8.4-10.2) 01/29/22 06:55 Total Bilirubin 0.30 mg/dL (0.1-1.2) 01/29/22 06:55 Direct Bilirubin 0.2 mg/dL (0-0.2) 01/28/22 07:58 Indirect Bilirubin 0.9 mg/dL 01/28/22 07:58 AST 21 units/L (5-40) 01/29/22 06:55 ALT 24 units/L (7-56) 01/29/22 06:55 Alkaline Phosphatase 82 units/L (35-129) 01/29/22 06:55 Lactate Dehydrogenase 359 units/L (91-180) H 01/28/22 11:54 Troponin T < 0.010 ng/mL (0.00-0.029) 01/28/22 07:58 C-Reactive Protein 15.20 mg/dL (0.00-1.30) H 01/28/22 11:54 NT-Pro-B Natriuret Pep 38.98 pg/mL (0-450) 01/28/22 07:58 Total Protein 7.8 g/dL (6.3-8.2) 01/29/22 06:55 Albumin 4.3 g/dL (3.9-5) 01/29/22 06:55 Albumin/Globulin Ratio 1.2 % 01/29/22 06:55 Procalcitonin 0.08 ng/mL (<0.15) 01/28/22 11:54 SARS-CoV-2 (PCR) Negative (Negative) 01/28/22 11:27 Blood Type A POSITIVE 01/28/22 11:54 Antibody Screen Negative 01/28/22 11:54 Microbiology: Microbiology 01/28/22 11:28 Peripheral/Venous Blood Culture - Preliminary Culture in Progress 01/28/22 11:28 Peripheral/Venous Blood Culture - Preliminary Culture in Progress Ba/IV: Voiding Method Urinal Active Medications - Current Medications Current Medications: Generic Name Dose Route Start Last Admin Trade Name Freq PRN Reason Stop Dose Admin Acetaminophen 650 mg 01/28/22 11:32 Acetaminophen 325 Mg Tab PO Q4H PRN Pain MILD(1-3)/Fever >100.5/HOFFMAN Albuterol 10 mg 01/28/22 21:34 01/28/22 21:48 Albuterol 2.5 Mg/3 Ml Nebu IH 10 mg Q4H PRN Administration Shortness Of Breath Albuterol/Ipratropium 1 ampul 01/29/22 00:00 01/29/22 05:16 Ipratropium/Albuterol Sulfate 3 Ml Ampul.Neb IH 1 ampul Q4HRT ANNE Administration Arformoterol Tartrate 15 mcg 01/29/22 08:00 Arformoterol 15 Mcg/2 Ml Nebu IH Q12HRT [facility] Ascorbic Acid 500 mg 01/28/22 12:00 01/29/22 09:05 Ascorbic Acid 500 Mg Tab PO 500 mg BID ANNE Administration Azithromycin 500 mg 01/29/22 10:00 01/29/22 09:06 Azithromycin 250 Mg Tab PO 02/02/22 09:59 500 mg QDAY ANNE Administration Budesonide 0.5 mg 01/29/22 08:00 Budesonide 0.5 Mg/2 Ml Nebu IH Q12HRT [facility] Cholecalciferol 1,000 unit 01/28/22 12:00 01/29/22 09:05 Cholecalciferol (Vit D3) 1000 Unit (25 Mcg) Tab PO 1,000 unit QDAY [facility] Administration Heparin Sodium (Porcine) 5,000 unit 01/28/22 12:00 01/29/22 09:04 Heparin 5,000 Unit/1 Ml Vial SUB-Q 5,000 unit Q12HR [facility] Administration Hydromorphone HCl 0.25 mg 01/28/22 11:32 Hydromorphone 1 Mg/1 Ml Inj IV Q4H PRN Pain , Severe (7-10) Ceftriaxone Sodium 2 gm in 100 mls @ 200 mls/hr 01/29/22 12:00 Rocephin/Ns 2 Gm/100 Ml IV 02/02/22 12:59 Q24H [facility] Protocol Methylprednisolone Sodium Succinate 40 mg 01/28/22 16:00 01/29/22 08:55 Methylprednisolone Sod Succinate 40 Mg/1 Ml Inj IV 40 mg Q8H [facility] Administration Ondansetron HCl 4 mg 01/28/22 11:32 Ondansetron 4 Mg/2 Ml Inj IV Q8H PRN Nausea And Vomiting Oxycodone/Acetaminophen 1 tab 01/28/22 11:32 Oxycodone /Acetaminophen 5-325mg Tab PO Q6H PRN Pain, Moderate (4-6) Sodium Chloride 10 ml 01/28/22 22:00 01/29/22 09:04 Sodium Chloride 0.9% 10 Ml Flush Syringe IV 10 ml BID ANNE Administration Sodium Chloride 10 ml 01/28/22 11:32 Sodium Chloride 0.9% 10 Ml Flush Syringe IV PRN PRN LINE FLUSH Zinc Sulfate 220 mg 01/28/22 12:00 01/29/22 09:05 Zinc Sulfate 220 Mg Cap PO 220 mg BID ANNE Administration
[2022-01-29] MEDS: ARFORMOTEROL 15 MCG/2 ML NEBU IH SCH ×2 (09:41→20:15)
[2022-01-29] MEDS: BUDESONIDE 0.5 MG/2 ML NEBU IH SCH ×2 (09:41→20:15)
[2022-01-29] MEDS ORDERED: AZITHROMYCIN/NS 500 MG/250 ML 500 MG/250 ML BAG IV SCH (12:00)
--- NOTE | 2022-01-29 12:14 | Electrocardiograph Report ---
[facility] Test Date: 2022-01-28 Test Time: 08:43:40 Pat Name: FLORENTIN BELL Department: Room: A356 Gender: M Chlorinator: ZEV : 1985 Requested By: LALITA REED Order Number: [id number] Reading MD: Darrion Lenz Measurements Intervals [place] Rate: 106 P: 79 MS: 138 QRS: 49 QRSD: 83 T: 38 QT: 323 QTc: 429 Interpretive Statements Sinus tachycardia Probable left atrial enlargement No previous ECG available for comparison Electronically Signed On 01-29-2022 12:14:17 EDT by Darrion Lenz
[2022-01-29] MEDS: cefTRIAXone/NS 2 GM/100 ML 2 GM/100 ML BAG IV SCH (13:03)
[2022-01-29] MEDS ORDERED: FUROSEMIDE 40 MG/4 ML INJ IV ONE (18:51)
[2022-01-29] MEDS ORDERED: guaiFENesin DM 200/20 MG ORAL LIQD 10 ML PO PRN (18:51)
[2022-01-29] MEDS: CETIRIZINE 10 MG TAB PO SCH (19:34)
[2022-01-30] MEDS: IPRATROPIUM/ALBUTEROL SULFATE 3 ML AMPUL.NEB IH SCH ×4 (00:35→19:35)
[2022-01-30] MEDS ORDERED: ALBUTEROL 2.5 MG/3 ML NEBU IH PRN (03:03)
[2022-01-30] MEDS: CETIRIZINE 10 MG TAB PO SCH (09:11)
[2022-01-30] MEDS: ZINC SULFATE 220 MG CAP PO SCH ×2 (09:11→22:33)
[2022-01-30] MEDS: ASCORBIC ACID 500 MG TAB PO SCH ×2 (09:11→22:33)
[2022-01-30] MEDS: AZITHROMYCIN 250 MG TAB PO SCH (09:11)
[2022-01-30] MEDS: HEPARIN 5,000 UNIT/1 ML VIAL SUB-Q SCH ×2 (09:12→22:33)
[2022-01-30] MEDS: CHOLECALCIFEROL (VIT D3) 1000 UNIT (25 mcg) TAB PO SCH (09:12)
[2022-01-30] MEDS: methylPREDNISolone Sod Succinate 40 MG/1 ML INJ IV SCH ×3 (09:14→23:02)
[2022-01-30] MEDS: BUDESONIDE 0.5 MG/2 ML NEBU IH SCH ×2 (10:22→19:35)
[2022-01-30] MEDS: ARFORMOTEROL 15 MCG/2 ML NEBU IH SCH ×2 (10:22→19:35)
[2022-01-30] MEDS: cefTRIAXone/NS 2 GM/100 ML 2 GM/100 ML BAG IV SCH (11:48)
--- NOTE | 2022-01-30 18:34 | Progress Note ---
Assessment and Plan Assessment and plan: --COVID-19 unvaccinated Current Visit: Yes Status: Acute Patient did not receive COVID-19 vaccination --COVID-19 test is negative -- sepsis due to bilateral pneumonia Sepsis protocol: Chest x-ray, urinalysis, CBC, CMP, IV fluid resuscitation therapy, IV antibiotic therapy, serial lactic acid level, blood culture, maintain mean arterial pressure greater than or equal to 65, monitor fluid balance, -- Bilateral pneumonia Pneumonia protocol: Chest x-ray, CBC, CMP, supplemental oxygen, pulse oximetry, nebulizer therapy, pulmonary toilet. -- Nicotine dependence Smoking cessation counseling, supportive care, behavior change counseling, +15 minutes. -- Acute respiratory failure with hypoxia on 3 to 4 L of nasal cannula oxygen Chest x-ray, supplemental oxygen, pulse oximetry, nebulizer therapy, will consider high flow supplemental oxygen if patient is unable to maintain pulse oximetry on supplemental oxygen via nasal cannula. Wean as tolerated Home O2 evaluation prior to discharge --DVT prophylaxis SCD to bilateral lower extremities while in bed, prophylactic anticoagulation --Advance care planning Disease education conducted, care plan discussed, diagnoses discussed, prognosis discussed, patient is full code. Patient acknowledges understanding and agreement with care plan, +30 minutes. --Preventative health care Patient counseled regarding risk factor reduction, coronavirus vaccination with booster administration, balanced diet, meal planning, increase physical activity discharge. Outpatient follow-up with primary care physician for all age and risk factor appropriate screening tests. +30 minutes. Closely monitor the patient and adjust management as needed Plan of care reviewed with the patient and his nurse History Interval history: I have seen and examined the patient at the bedside Patient's chart and medications reviewed No new events reported by the nursing staff Vital signs noted Hospitalist Physical - Constitutional Vitals: Temp Pulse Resp BP Pulse Ox 98.8 F 106 H 18 173/101 98 01/30/22 17:41 01/30/22 17:41 01/30/22 17:41 01/30/22 17:41 01/30/22 17:41 General appearance: Present: mild distress, well-nourished - EENT Eyes: Present: PERRL, EOM intact - Neck Neck: Present: supple, normal ROM - Respiratory Respiratory effort: normal Respiratory: bilateral: diminished, negative: rales, rhonchi, wheezing - Cardiovascular Rhythm: regular Heart Sounds: Present: S1 & S2 - Extremities Extremities: no ischemia, No edema - Abdominal General gastrointestinal: soft, non-tender, non-distended, normal bowel sounds - Integumentary Integumentary: Present: clear, warm - Psychiatric Psychiatric: appropriate mood/affect - Neurologic Neurologic: moves all extremities HEART Score - HEART Score Troponin: Troponin T < 0.010 ng/mL (0.00-0.029) 01/28/22 07:58 Results - Labs CBC & Chem 7: 01/29/22 06:55 01/29/22 06:55 Labs: Laboratory Last Values WBC 18.6 K/mm3 (4.5-11.0) H 01/29/22 06:55 RBC 4.02 M/mm3 (3.65-5.03) 01/29/22 06:55 Hgb 12.8 gm/dl (11.8-15.2) 01/29/22 06:55 Hct 37.4 % (35.5-45.6) 01/29/22 06:55 MCV 93 fl (84-94) 01/29/22 06:55 MCH 32 pg (28-32) 01/29/22 06:55 MCHC 34 % (32-34) 01/29/22 06:55 RDW 13.5 % (13.2-15.2) 01/29/22 06:55 Plt Count 314 K/mm3 (140-440) 01/29/22 06:55 Lymph % (Auto) 7.9 % (13.4-35.0) L 01/29/22 06:55 [place] % (Auto) 6.6 % (0.0-7.3) 01/29/22 06:55 Eos % (Auto) 0.0 % (0.0-4.3) 01/29/22 06:55 Baso % (Auto) 0.4 % (0.0-1.8) 01/29/22 06:55 Lymph # (Auto) 1.5 K/mm3 (1.2-5.4) 01/29/22 06:55 [place] # (Auto) 1.2 K/mm3 (0.0-0.8) H 01/29/22 06:55 Eos # (Auto) 0.0 K/mm3 (0.0-0.4) 01/29/22 06:55 Baso # (Auto) 0.1 K/mm3 (0.0-0.1) 01/29/22 06:55 Seg Neutrophils % 85.1 % (40.0-70.0) H 01/29/22 06:55 Seg Neutrophils # 15.8 K/mm3 (1.8-7.7) H 01/29/22 06:55 PT 16.3 Sec. (12.2-14.9) H 01/28/22 07:58 INR 1.17 (0.87-1.13) H 01/28/22 07:58 APTT 34.3 Sec. (24.2-36.6) 01/28/22 07:58 D-Dimer 190.37 ng/mlDDU (0-234) 01/28/22 11:54 Sodium 136 mmol/L (137-145) L 01/29/22 06:55 Potassium 5.4 mmol/L (3.6-5.0) H 01/29/22 06:55 Chloride 100.8 mmol/L (98-107) 01/29/22 06:55 Carbon Dioxide 23 mmol/L (22-30) 01/29/22 06:55 Anion Gap 18 mmol/L 01/29/22 06:55 BUN 22 mg/dL (9-20) H 01/29/22 06:55 Creatinine 1.1 mg/dL (0.8-1.3) 01/29/22 06:55 Estimated GFR > 60 ml/min 01/29/22 06:55 BUN/Creatinine Ratio 20 % 01/29/22 06:55 Glucose 163 mg/dL (75-100) H 01/29/22 06:55 Lactic Acid 1.70 mmol/L (0.7-2.0) 01/29/22 06:55 Calcium 9.4 mg/dL (8.4-10.2) 01/29/22 06:55 Total Bilirubin 0.30 mg/dL (0.1-1.2) 01/29/22 06:55 Direct Bilirubin 0.2 mg/dL (0-0.2) 01/28/22 07:58 Indirect Bilirubin 0.9 mg/dL 01/28/22 07:58 AST 21 units/L (5-40) 01/29/22 06:55 ALT 24 units/L (7-56) 01/29/22 06:55 Alkaline Phosphatase 82 units/L (35-129) 01/29/22 06:55 Lactate Dehydrogenase 359 units/L (91-180) H 01/28/22 11:54 Troponin T < 0.010 ng/mL (0.00-0.029) 01/28/22 07:58 C-Reactive Protein 15.20 mg/dL (0.00-1.30) H 01/28/22 11:54 NT-Pro-B Natriuret Pep 38.98 pg/mL (0-450) 01/28/22 07:58 Total Protein 7.8 g/dL (6.3-8.2) 01/29/22 06:55 Albumin 4.3 g/dL (3.9-5) 01/29/22 06:55 Albumin/Globulin Ratio 1.2 % 01/29/22 06:55 Procalcitonin 0.08 ng/mL (<0.15) 01/28/22 11:54 SARS-CoV-2 (PCR) Negative (Negative) 01/28/22 11:27 Blood Type A POSITIVE 01/28/22 11:54 Antibody Screen Negative 01/28/22 11:54 Microbiology: Microbiology 01/28/22 11:28 Peripheral/Venous Blood Culture - Preliminary NO GROWTH AFTER 48 HOURS 01/28/22 11:28 Peripheral/Venous Blood Culture - Preliminary NO GROWTH AFTER 48 HOURS Ba/IV: Voiding Method Toilet Active Medications - Current Medications Current Medications: Generic Name Dose Route Start Last Admin Trade Name Freq PRN Reason Stop Dose Admin Acetaminophen 650 mg 01/28/22 11:32 01/29/22 18:00 Acetaminophen 325 Mg Tab PO 650 mg Q4H PRN Administration Pain MILD(1-3)/Fever >100.5/HOFFMAN Albuterol 2.5 mg 01/30/22 03:03 Albuterol 2.5 Mg/3 Ml Nebu IH Q4HRT PRN Shortness Of Breath Albuterol/Ipratropium 1 ampul 01/30/22 08:00 01/30/22 15:14 Ipratropium/Albuterol Sulfate 3 Ml Ampul.Neb IH 1 ampul Q6HRT ANNE Administration Arformoterol Tartrate 15 mcg 01/29/22 08:00 01/30/22 10:22 Arformoterol 15 Mcg/2 Ml Nebu IH 15 mcg Q12HRT ANNE Administration Ascorbic Acid 500 mg 01/28/22 12:00 01/30/22 09:11 Ascorbic Acid 500 Mg Tab PO 500 mg BID ANNE Administration Azithromycin 500 mg 01/29/22 10:00 01/30/22 09:11 Azithromycin 250 Mg Tab PO 02/02/22 09:59 500 mg QDAY ANNE Administration Budesonide 0.5 mg 01/29/22 08:00 01/30/22 10:22 Budesonide 0.5 Mg/2 Ml Nebu IH 0.5 mg Q12HRT ANNE Administration Cetirizine HCl 10 mg 01/29/22 19:00 01/30/22 09:11 Cetirizine 10 Mg Tab PO 10 mg QDAY ANNE Administration Cholecalciferol 1,000 unit 01/28/22 12:00 01/30/22 09:12 Cholecalciferol (Vit D3) 1000 Unit (25 Mcg) Tab PO 1,000 unit QDAY [facility] Administration Guaifenesin 10 ml 01/29/22 18:51 Guaifenesin Dm 200/20 Mg Oral Liqd 10 Ml PO Q4H PRN Cough Heparin Sodium (Porcine) 5,000 unit 01/28/22 12:00 01/30/22 09:12 Heparin 5,000 Unit/1 Ml Vial SUB-Q 5,000 unit Q12HR ANNE Administration Hydralazine HCl 25 mg 01/30/22 22:00 Hydralazine 25 Mg Tab PO Q8HR [facility] Hydromorphone HCl 0.25 mg 01/28/22 11:32 Hydromorphone 1 Mg/1 Ml Inj IV Q4H PRN Pain , Severe (7-10) Ceftriaxone Sodium 2 gm in 100 mls @ 200 mls/hr 01/29/22 12:00 01/30/22 11:48 Rocephin/Ns 2 Gm/100 Ml IV 02/02/22 12:59 200 mls/hr Q24H ANNE Administration Protocol Methylprednisolone Sodium Succinate 40 mg 01/28/22 16:00 01/30/22 17:57 Methylprednisolone Sod Succinate 40 Mg/1 Ml Inj IV 40 mg Q8H ANNE Administration Ondansetron HCl 4 mg 01/28/22 11:32 Ondansetron 4 Mg/2 Ml Inj IV Q8H PRN Nausea And Vomiting Oxycodone/Acetaminophen 1 tab 01/28/22 11:32 Oxycodone /Acetaminophen 5-325mg Tab PO Q6H PRN Pain, Moderate (4-6) Sodium Chloride 10 ml 01/28/22 22:00 01/30/22 09:12 Sodium Chloride 0.9% 10 Ml Flush Syringe IV 10 ml BID ANNE Administration Sodium Chloride 10 ml 01/28/22 11:32 Sodium Chloride 0.9% 10 Ml Flush Syringe IV PRN PRN LINE FLUSH Zinc Sulfate 220 mg 01/28/22 12:00 01/30/22 09:11 Zinc Sulfate 220 Mg Cap PO 220 mg BID ANNE Administration
[2022-01-30] MEDS ORDERED: hydrALAZINE 20 MG/1 ML INJ IV PRN (18:38)
[2022-01-30] MEDS ORDERED: hydrALAZINE 25 MG TAB PO ONE (18:45)
[2022-01-30] MEDS: hydrALAZINE 25 MG TAB PO SCH (22:37)
[2022-01-31] MEDS: IPRATROPIUM/ALBUTEROL SULFATE 3 ML AMPUL.NEB IH SCH ×3 (01:26→14:17)
[2022-01-31] MEDS: hydrALAZINE 25 MG TAB PO SCH (06:06)
[2022-01-31 06:07] VITALS: BP 149/86
[2022-01-31 06:09] LABS: Hematocrit 35.5 % (35.5-45.6); Hemoglobin 12.6 gm/dl (11.8-15.2); Mean Corpuscular HGB Conc 35 % (32-34); Mean Corpuscular Volume 93 fl (84-94); Platelet Count 328 K/mm3 (140-440); Red Blood Count 3.82 M/mm3 (3.65-5.03); Red Cell Distribution Width 13.6 % (13.2-15.2)
[2022-01-31 06:29] LABS: BUN/Creatinine Ratio 24; Blood Urea Nitrogen 24 mg/dL (9-20); Calcium 9.6 mg/dL (8.4-10.2); Hemolysis Index 2
[2022-01-31 06:55] LABS: Basophils % (Manual) 0 % (0.0-1.8); Eosinophils % (Manual) 0 % (0.0-4.3); Platelet Estimate Consistent w Auto; RBC Morphology Normal; Total Cells Counted 100
[2022-01-31] MEDS ORDERED: FUROSEMIDE 40 MG/4 ML INJ IV NR (08:00)
[2022-01-31] MEDS: BUDESONIDE 0.5 MG/2 ML NEBU IH SCH (08:21)
[2022-01-31] MEDS: ARFORMOTEROL 15 MCG/2 ML NEBU IH SCH (08:21)
[2022-01-31] MEDS: ZINC SULFATE 220 MG CAP PO SCH (09:25)
[2022-01-31] MEDS: CETIRIZINE 10 MG TAB PO SCH (09:25)
[2022-01-31] MEDS: CHOLECALCIFEROL (VIT D3) 1000 UNIT (25 mcg) TAB PO SCH (09:25)
[2022-01-31] MEDS: HEPARIN 5,000 UNIT/1 ML VIAL SUB-Q SCH (09:25)
[2022-01-31] MEDS: ASCORBIC ACID 500 MG TAB PO SCH (09:25)
[2022-01-31] MEDS: AZITHROMYCIN 250 MG TAB PO SCH (09:25)
[2022-01-31] MEDS: methylPREDNISolone Sod Succinate 40 MG/1 ML INJ IV SCH (09:29)
--- NOTE | 2022-01-31 11:40 | Discharge Summary ---
Providers - Providers Date of Admission: 01/28/22 11:32 Date of discharge: 01/31/22 Attending physician: SHASHANK LOPEZ Primary care physician: MEE LOUIE Hospitalization Reason for admission: Acute hypoxic respiratory failure requiring supplemental oxygen Condition: Stable Pertinent studies: Chest x-ray patchy versus nodular density in the left lung base CT chest without contrast will be helpful for further evaluation CT chest scattered patchy groundglass opacities throughout the bilateral lungs with slight central predominance there is nonspecific and may represent sequelae of infectious or inflammatory process Hospital course: 36-year-old male patient with significant past medical history of intermittent asthma ongoing tobacco use was admitted through emergency room with worsening shortness of breath, acute hypoxic respiratory failure requiring supplemental oxygen. Patient was unvaccinated for COVID-19, COVID 19 test done in the hospital was negative Chest x-ray showed bilateral pneumonia as patient received empiric antibiotics. Rocephin and Zithromax IV steroids inhalation steroids nebulizers and supportive care Patient had severe congestion requiring low-dose of Lasix for a few days and antihistamines and cough medicine. Patient's symptoms slowly but gradually improved today patient is comfortable no new complaints, vital signs stable, patient was evaluated for home oxygen however patient's resting room air O2 sats and ambulatory room air O2 sats were more than 95% No indication for home oxygen Patient advised smoking cessation counseling and strongly advised nicotine patch as needed Patient advised to see primary care physician Advised to see private paleologist if his symptoms do not improve patient verbalized understanding Discharge diagnosis: --COVID-19 unvaccinated Current Visit: Yes Status: Acute Patient did not receive COVID-19 vaccination --COVID-19 test is negative -- sepsis due to bilateral pneumonia Sepsis protocol: Chest x-ray, urinalysis, CBC, CMP, IV fluid resuscitation therapy, IV antibiotic therapy, serial lactic acid level, blood culture, maintain mean arterial pressure greater than or equal to 65, monitor fluid balance, -- Bilateral pneumonia Pneumonia protocol: Chest x-ray, CBC, CMP, supplemental oxygen, pulse oximetry, nebulizer therapy, pulmonary toilet. -- Nicotine dependence Smoking cessation counseling, supportive care, behavior change counseling, +15 minutes. -- Acute respiratory failure with hypoxia on 3 to 4 L of nasal cannula oxygen Chest x-ray, supplemental oxygen, pulse oximetry, nebulizer therapy, will consider high flow supplemental oxygen if patient is unable to maintain pulse oximetry on supplemental oxygen via nasal cannula. Wean as tolerated Home O2 evaluation prior to discharge --DVT prophylaxis SCD to bilateral lower extremities while in bed, prophylactic anticoagulation --Advance care planning Disease education conducted, care plan discussed, diagnoses discussed, prognosis discussed, patient is full code. Patient acknowledges understanding and agreement with care plan, +30 minutes. --Preventative health care Patient counseled regarding risk factor reduction, coronavirus vaccination with booster administration, balanced diet, meal planning, increase physical activity discharge. Outpatient follow-up with primary care physician for all age and risk factor appropriate screening tests. +30 minutes. Closely monitor the patient and adjust management as needed Plan of care reviewed with the patient and h Disposition: HOME / SELF CARE / HOMELESS Final Discharge Diagnosis (Prints w/discharge instructions): Unvaccinated for COVID-19. COVID-19 test negative. Sepsis due to bilateral pneumonia. Nicotine dependence. Acute respiratory failure with hypoxia on admission. Supplemental oxygen 3 to 4 L on admission resolved Time spent for discharge: 35 min Core Measure Documentation - Palliative Care Palliative Care/ Comfort Measures: Not Applicable - Core Measures Any of the following diagnoses?: none Exam - Constitutional Vitals: Temp Pulse Resp BP Pulse Ox 98.2 F 90 18 149/86 97 01/31/22 06:07 01/31/22 08:00 01/31/22 08:00 01/31/22 06:07 01/31/22 11:35 General appearance: Present: no acute distress, well-nourished - EENT Eyes: Present: PERRL, EOM intact - Neck Neck: Present: supple, normal ROM - Respiratory Respiratory effort: normal Respiratory: bilateral: diminished, negative: rales, rhonchi, wheezing - Cardiovascular Rhythm: regular Heart Sounds: Present: S1 & S2 - Extremities Extremities: no ischemia, No edema - Abdominal General gastrointestinal: Present: soft, non-tender, non-distended, normal bowel sounds - Integumentary Integumentary: Present: clear, warm - Musculoskeletal Musculoskeletal: strength equal bilaterally - Psychiatric Psychiatric: appropriate mood/affect, cooperative - Neurologic Neurologic: moves all extremities Plan Activity: advance as tolerated Diet: regular Special Instructions: smoking cessation Additional Instructions: If you have worsening symptoms contact MD or go to the nearest emergency room as needed. Advised smoking cessation, nicotine patch as needed. Follow-up primary care physician in 1 week. If your symptoms do not improve may see paleologist/lung specialist for further evaluation and management Follow up with: MEE LOUIE MD [Primary Care Provider] - 3-5 Days Prescriptions: Fluticasone/Salmeterol [Advair Diskus 250-50 mcg] 1 puff IH BID #1 Cetirizine HCl [Allergy Relief] 10 mg PO DAILY PRN #14 cap PRN Reason: Congestion hydrALAZINE [Apresoline TAB] 25 mg PO Q8HR #90 tablet cefUROXime [Ceftin] 2 tab PO Q12H 4 Days #16 guaiFENesin DM [Guaifenesin Dm Syrup] 10 ml PO Q4H PRN 14 Days #1 bottle PRN Reason: Cough Furosemide [Lasix] 20 mg PO QDAY #14 tablet predniSONE 10 mg PO QDAY #24 tab Albuterol Mdi (or & Nicu Only) [ProAir HFA Inhaler] 2 puff IH QID PRN #8.5 gram PRN Reason: Shortness Of Breath Azithromycin [Zithromax TAB] 500 mg PO QDAY #4
[2022-01-31] MEDS: cefTRIAXone/NS 2 GM/100 ML 2 GM/100 ML BAG IV SCH (12:38)
== END 2022-01-31 14:00 | disposition home or self-care (01) | DRG 871 ==
LOC: ED 07:00 → 3A 11:32
PROVIDERS: ADMIT Internal Medicine; ATTEND Internal Medicine
DX: A41.89 Other specified sepsis (principal); J96.01 Acute respiratory failure with hypoxia; J18.9 Pneumonia, unspecified organism; J45.901 Unspecified asthma with (acute) exacerbation; F17.213 Nicotine dependence, cigarettes, with withdrawal; Z20.822 Contact with and (suspected) exposure to COVID-19; I10 Essential (primary) hypertension; Z82.49 Family history of ischemic heart disease and other diseases of the circulatory system; Z71.6 Tobacco abuse counseling; Z88.3 Allergy status to other anti-infective agents
CPT/HCPCS: 36415; 71045; 71250; 80048; 80053; 80076; 82140; 83615; 83735; 83880; 84145; 84484; 85007; 85025; 85379; 85610; 85730; 86140; 86850; 86900; 86901; 87040; 93005; 94640; 94644; 94760; 99406; G0378; J0456; J0696; J1644; J1940; J2920; J2930; J3475; J7030; U0003

== ENCOUNTER 2022-03-25 07:43 | Emergency (ER) | payer SELFPAY ==
[2022-03-25] MEDS ORDERED: IPRATROPIUM/ALBUTEROL SULFATE 3 ML AMPUL.NEB IH ONE (08:41)
[2022-03-25] MEDS ORDERED: methylPREDNISolone Sod Succinate 125 MG/2 ML INJ IM ONE (08:41)
[2022-03-25] MEDS ORDERED: KETOROLAC 10 MG TAB PO ONE (08:42)
[2022-03-25] MEDS ORDERED: BENZONATATE 100 MG CAP PO ONE (08:42)
--- NOTE | 2022-03-25 09:07 | XRay Report ---
CHEST 2 VIEWS INDICATION / CLINICAL INFORMATION: chest pain. COMPARISON: 01/28/2022 FINDINGS: SUPPORT DEVICES: None. HEART / MEDIASTINUM: No significant abnormality. LUNGS / PLEURA: No significant pulmonary or pleural abnormality. No pneumothorax. Previously describe d subtle opacity in the left lower lung has resolved. ADDITIONAL FINDINGS: No significant additional findings. IMPRESSION: 1. No acute findings. Signer Name: Per Jean Jr, MD Signed: 03/25/2022 9:02 AM Workstation Name: [id number]
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
[2022-03-25 11:02] VITALS: BP 149/83
--- NOTE | 2022-03-26 08:28 | Electrocardiograph Report ---
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
== END 2022-03-25 10:45 | disposition home or self-care (01) ==
LOC: ED 07:43
DX: J45.901 Unspecified asthma with (acute) exacerbation (principal); I10 Essential (primary) hypertension; Z91.041 Radiographic dye allergy status
CPT/HCPCS: 71046; 93005; 94640; 96372; 99283; J2930; 94644